=== PATIENT | male | born 1965 | race Caucasian/White ===

== ENCOUNTER 2016-08-09 17:12 | Inpatient (IN) | payer MEDICARE, OTHER ==
[~2016-08-09] VITALS: Ht 167.6 cm; Wt 88.1 kg
[~2016-08-09 17:12] MED LIST: LAMO100 PO; LEVO25TA9 PO; QUET200T PO
[2016-08-09] MEDS ORDERED: PNEUMOCOCCAL VACCINE POLYVALENT 0.5 ML VIAL [PPSV23] IM ONE (18:00)
[2016-08-09] MEDS ORDERED: INFLUENZA VIRUS VACCINE QVS 2016-17 (3YR+)/PF 60 MCG/0.5 ML SYRINGE IM ONE (18:00)
[2016-08-09 18:46] VITALS: BP_SYST 127; BP_SYST 133; BP_DIAS 74; BP_DIAS 89
[2016-08-09 18:55] LABS: GLUCOSE COMMENT 1 Doctor Notified; GLUCOSE,POINT OF CARE 83 MG/DL (70-110)
[2016-08-09] MEDS: QUEtiapine FUMARATE 300 MG TABLET PO SCH (20:21)
[2016-08-09] MEDS: ZOLPIDEM TARTRATE 10 MG TABLET PO PRN (22:28)
[2016-08-09] MEDS: LORazepam 2 MG TABLET PO PRN (22:29)
[2016-08-10 01:40] VITALS: BP 116/64
[2016-08-10] MEDS: LEVOTHYROXINE SODIUM 25 MCG TABLET PO SCH (06:05)
[2016-08-10 08:04] VITALS: BP 110/77
[2016-08-10 08:09] LABS: BASOPHILS % (AUTO) 0.4 % (0.0-2.0); EOSINOPHILS % (AUTO) 2.4 % (1.0-6.0); HEMATOCRIT 43.6 % (41-53); LYMPHOCYTES # (AUTO) 2.4 K/uL (1.0-4.8); LYMPHOCYTES % (AUTO) 30.5 % (22.0-44.0); MEAN CORPUSCULAR HEMOGLOBIN 29.1 pg (26.0-34.0); MEAN CORPUSCULAR HGB CONC 34.4 G/dL (31.0-37.0); MEAN CORPUSCULAR VOLUME 85 fL (80-100); MONOCYTES # (AUTO) 0.7 K/uL (0.1-1.0); MONOCYTES % (AUTO) 8.4 % (2.0-9.0); NEUTROPHILS # (AUTO) 4.6 K/uL (1.8-7.7); NEUTROPHILS % (AUTO) 58.3 % (40.0-70.0); PLATELET COUNT (AUTO) 206 K/uL (150-450); RED BLOOD CELL COUNT(AUTO) 5.16 MIL/uL (4.50-5.90); WHITE BLOOD COUNT (AUTO) 7.8 K/uL (4.5-11.0)
[2016-08-10 08:25] LABS: HEMOGLOBIN A1C 5.8 % (4.5-6.2)
[2016-08-10 08:31] LABS: ALANINE AMINOTRANSFERASE 55 U/L (12-78); ALBUMIN 3.8 g/dL (3.4-5.0); ANION GAP 7 mmol/L (8-16); ASPARTATE AMINOTRANSFERASE 65 U/L (15-37); BILIRUBIN,TOTAL 0.6 mg/dL (0.1-1.0); CALCIUM, TOTAL 8.8 mg/dL (8.8-10.5); CARBON DIOXIDE 28 mmol/L (22-29); CHLORIDE 103 mmol/L (98-107); CHOL/HDL RATIO 2.6 (4.2-7.3); CREATININE 1.02 mg/dL (0.60-1.30); GLOMERULAR FILTR. RATE CALC > 60 mL/min (>60); POTASSIUM 3.5 mmol/L (3.5-5.1); SODIUM SERUM 138 mmol/L (136-145); THYROID STIMULATING HORMONE 2.94 uIU/mL (0.36-3.74); TOTAL PROTEIN, SERUM 7.3 g/dL (6.4-8.2); UREA NITROGEN, BLOOD 17 mg/dL (7-18)
[2016-08-10 08:48] LABS: APPEARANCE,URINE CLEAR (CLEAR); GLUCOSE, URINE (UA) NEGATIVE (NEGATIVE); KETONES,URINE NEGATIVE (NEGATIVE); LEUKOCYTE ESTERASE ,URINE NEGATIVE (NEGATIVE); OCCULT BLOOD,URINE NEGATIVE (NEGATIVE); PH,URINE 5.5 (5.0-8.0); PROTEIN,URINE POS 1+ (NEGATIVE)
[2016-08-10] MEDS: LORazepam 2 MG TABLET PO PRN ×3 (09:20→20:50)
[2016-08-10] MEDS: QUEtiapine FUMARATE 300 MG TABLET PO SCH ×2 (09:20→16:41)
[2016-08-10] MEDS: HALOPERIDOL 5 MG TABLET PO PRN (09:20)
[2016-08-10 09:22] LABS: ADD UA MICROSCOPIC YES
[2016-08-10 09:31] LABS: RBC,URINE None Seen /HPF (0-2); WBC,URINE None Seen /HPF (0-5)
[2016-08-10 16:06] VITALS: BP 130/68
[2016-08-10] MEDS: ZOLPIDEM TARTRATE 10 MG TABLET PO PRN (20:50)
[2016-08-11 01:38] VITALS: BP 120/71
[2016-08-11] MEDS: HALOPERIDOL 5 MG TABLET PO PRN (02:11)
[2016-08-11] MEDS: LORazepam 2 MG TABLET PO PRN ×3 (02:11→20:47)
[2016-08-11] MEDS: LEVOTHYROXINE SODIUM 25 MCG TABLET PO SCH (06:36)
[2016-08-11 08:04] VITALS: BP 133/84
[2016-08-11] MEDS: QUEtiapine FUMARATE 300 MG TABLET PO SCH ×2 (09:51→16:47)
[2016-08-11 16:20] VITALS: BP 118/87
[2016-08-11] MEDS: ZOLPIDEM TARTRATE 10 MG TABLET PO PRN (20:47)
[2016-08-12 01:55] VITALS: BP 114/67
[2016-08-12] MEDS: LEVOTHYROXINE SODIUM 25 MCG TABLET PO SCH (06:04)
[2016-08-12 08:03] VITALS: BP 137/74
[2016-08-12] MEDS: HALOPERIDOL 5 MG TABLET PO PRN (08:58)
[2016-08-12] MEDS: LORazepam 2 MG TABLET PO PRN ×3 (08:58→20:34)
[2016-08-12] MEDS: QUEtiapine FUMARATE 300 MG TABLET PO SCH ×2 (08:58→16:34)
[2016-08-12] MEDS: DIVALPROEX SODIUM 500 MG DR TABLET PO SCH ×2 (09:37→20:34)
[2016-08-12 16:18] VITALS: BP 140/73
[2016-08-12] MEDS: ZOLPIDEM TARTRATE 10 MG TABLET PO PRN (20:34)
[2016-08-13 05:19] VITALS: BP 134/79
[2016-08-13] MEDS: LEVOTHYROXINE SODIUM 25 MCG TABLET PO SCH (06:12)
[2016-08-13 08:04] VITALS: BP 132/79
[2016-08-13] MEDS: LORazepam 2 MG TABLET PO PRN ×2 (09:20→20:23)
[2016-08-13] MEDS: DIVALPROEX SODIUM 500 MG DR TABLET PO SCH ×2 (09:20→20:22)
[2016-08-13] MEDS: HALOPERIDOL 5 MG TABLET PO PRN (09:20)
[2016-08-13] MEDS: QUEtiapine FUMARATE 300 MG TABLET PO SCH ×2 (09:21→16:33)
[2016-08-13 16:24] VITALS: BP 135/77
[2016-08-13] MEDS: ZOLPIDEM TARTRATE 10 MG TABLET PO PRN (20:23)
[2016-08-14 00:07] VITALS: BP 115/81
[2016-08-14] MEDS: LEVOTHYROXINE SODIUM 25 MCG TABLET PO SCH (05:58)
[2016-08-14 08:04] VITALS: BP 141/83
[2016-08-14] MEDS: DIVALPROEX SODIUM 500 MG DR TABLET PO SCH ×2 (09:14→20:19)
[2016-08-14] MEDS: LORazepam 2 MG TABLET PO PRN (09:15)
[2016-08-14] MEDS: QUEtiapine FUMARATE 300 MG TABLET PO SCH ×2 (09:15→16:34)
[2016-08-14] MEDS: HALOPERIDOL 5 MG TABLET PO PRN (09:15)
[2016-08-14 16:04] VITALS: BP 123/78
[2016-08-15] MEDS: ZOLPIDEM TARTRATE 10 MG TABLET PO PRN (00:11)
[2016-08-15 03:56] VITALS: BP 125/79
[2016-08-15] MEDS: LEVOTHYROXINE SODIUM 25 MCG TABLET PO SCH (06:03)
[2016-08-15 08:42] VITALS: BP 112/70
[2016-08-15] MEDS: DIVALPROEX SODIUM 500 MG DR TABLET PO SCH ×2 (10:40→20:44)
[2016-08-15] MEDS: QUEtiapine FUMARATE 300 MG TABLET PO SCH ×2 (10:40→16:58)
[2016-08-15] MEDS ORDERED: BENZOCAINE/MENTHOL LOZENGE MM PRN (10:45)
[2016-08-15] MEDS ORDERED: LOPERAMIDE HCL 2 MG CAPSULE PO PRN (10:45)
[2016-08-15] MEDS ORDERED: IBUPROFEN 600 MG TABLET PO PRN (10:45)
[2016-08-15] MEDS ORDERED: MAG HYDROX/AL HYDROX/SIMETH ES 30 ML SUSPENSION UDCUP PO PRN (10:45)
[2016-08-15] MEDS ORDERED: CloNIDine HCL 0.1 MG TABLET PO PRN (10:45)
[2016-08-15] MEDS ORDERED: ALBUTEROL SULFATE HFA 90 MCG/PUFF 8 GM INHALER IH PRN (10:45)
[2016-08-15] MEDS ORDERED: ACETAMINOPHEN 325 MG TABLET PO PRN (10:45)
[2016-08-15] MEDS ORDERED: PETROLATUM,WHITE 71 GM JELLY TP PRN (10:45)
[2016-08-15] MEDS ORDERED: ONDANSETRON HCL 4 MG TABLET PO PRN (10:45)
[2016-08-15] MEDS ORDERED: MAGNESIUM HYDROXIDE SUSPENSION 30 ML UDCUP PO PRN (10:45)
[2016-08-15] MEDS ORDERED: BACITRACIN 28.4 GM OINTMENT TP PRN (10:45)
[2016-08-15 16:16] VITALS: BP 139/72
[2016-08-15] MEDS: HALOPERIDOL 5 MG TABLET PO PRN (18:03)
[2016-08-15] MEDS: LORazepam 2 MG TABLET PO PRN (18:03)
[2016-08-15] MEDS: TraZODone HCL 50 MG TABLET PO SCH (20:44)
[2016-08-16 05:26] VITALS: BP 106/72
[2016-08-16] MEDS: LEVOTHYROXINE SODIUM 25 MCG TABLET PO SCH (06:30)
[2016-08-16] MEDS: LORazepam 2 MG TABLET PO PRN (09:14)
[2016-08-16] MEDS: QUEtiapine FUMARATE 300 MG TABLET PO SCH ×2 (09:14→16:45)
[2016-08-16] MEDS: DIVALPROEX SODIUM 500 MG DR TABLET PO SCH ×2 (09:14→20:52)
[2016-08-16 10:01] VITALS: BP 111/93
[2016-08-16 11:30] VITALS: BP 116/78
[2016-08-16 18:27] VITALS: BP 127/78
[2016-08-16] MEDS: TraZODone HCL 50 MG TABLET PO SCH (20:52)
[2016-08-17] MEDS: ZOLPIDEM TARTRATE 10 MG TABLET PO PRN (00:44)
[2016-08-17] MEDS: LORazepam 2 MG TABLET PO PRN ×2 (00:44→12:48)
[2016-08-17 01:00] VITALS: BP 106/73
[2016-08-17] MEDS: LEVOTHYROXINE SODIUM 25 MCG TABLET PO SCH (06:24)
[2016-08-17 08:46] VITALS: BP 112/68
[2016-08-17] MEDS: QUEtiapine FUMARATE 300 MG TABLET PO SCH ×2 (09:34→16:41)
[2016-08-17] MEDS: DIVALPROEX SODIUM 500 MG DR TABLET PO SCH ×2 (09:34→20:56)
[2016-08-17 16:15] VITALS: BP 110/67
[2016-08-17] MEDS: TraZODone HCL 50 MG TABLET PO SCH (20:56)
[2016-08-18 01:49] VITALS: BP 131/78
[2016-08-18] MEDS: LORazepam 2 MG TABLET PO PRN (01:54)
[2016-08-18] MEDS: HALOPERIDOL 5 MG TABLET PO PRN (01:54)
[2016-08-18] MEDS: LEVOTHYROXINE SODIUM 25 MCG TABLET PO SCH (06:34)
[2016-08-18 08:52] VITALS: BP 135/84
[2016-08-18] MEDS: QUEtiapine FUMARATE 300 MG TABLET PO SCH ×2 (08:52→16:56)
[2016-08-18] MEDS: DIVALPROEX SODIUM 500 MG DR TABLET PO SCH ×2 (08:52→21:02)
[2016-08-18 16:21] VITALS: BP 130/72
[2016-08-18] MEDS: TraZODone HCL 50 MG TABLET PO SCH (21:02)
[2016-08-19 00:13] VITALS: BP 136/77
[2016-08-19] MEDS: LEVOTHYROXINE SODIUM 25 MCG TABLET PO SCH (06:21)
[2016-08-19] MEDS: DIVALPROEX SODIUM 500 MG DR TABLET PO SCH (08:05)
[2016-08-19] MEDS: QUEtiapine FUMARATE 300 MG TABLET PO SCH (08:05)
[2016-08-19 08:33] VITALS: BP 128/77
[2016-08-19] MEDS ORDERED: DIVA250T4 PO (10:00)
[2016-08-19] MEDS ORDERED: TRAZ-144 PO (10:01)
[2016-08-19] MEDS ORDERED: DIVA500T35 PO (11:04)
== END 2016-08-19 14:30 | disposition home or self-care (01) | DRG 885 ==
LOC: B3A 17:39 → EDSTATUS 17:42 → B3A 20:23 → B2S 08-14 19:30
DX: F25.0 Schizoaffective disorder, bipolar type (principal); F20.0 Paranoid schizophrenia; E03.9 Hypothyroidism, unspecified; E11.9 Type 2 diabetes mellitus without complications; E66.9 Obesity, unspecified; F12.90 Cannabis use, unspecified, uncomplicated; F14.90 Cocaine use, unspecified, uncomplicated; I10 Essential (primary) hypertension; K21.9 Gastro-esophageal reflux disease without esophagitis; K59.00 Constipation, unspecified; Z68.31 Body mass index [BMI] 31.0-31.9, adult; Z91.5 Personal history of self-harm; Z71.51 Drug abuse counseling and surveillance of drug abuser; Z98.890 Other specified postprocedural states; Z56.0 Unemployment, unspecified; Z91.19 Patient's noncompliance with other medical treatment and regimen; Z79.899 Other long term (current) drug therapy; Z28.21 Immunization not carried out because of patient refusal; Z83.3 Family history of diabetes mellitus
CPT/HCPCS: 82962; 83036; 84439; 84443

== ENCOUNTER 2017-12-18 17:24 | Inpatient (IN) | payer MEDICARE ==
[~2017-12-18] VITALS: Ht 172.7 cm; Wt 85.0 kg
[~2017-12-18 17:24] MED LIST changes: +DIVA250T4 PO; +DIVA500T35 PO; -LAMO100 PO; +TRAZ-144 PO
[2017-12-18] MEDS ORDERED: HALOPERIDOL 5 MG TABLET PO PRN (18:30)
[2017-12-18 19:00] VITALS: BP 114/87
[2017-12-18] MEDS ORDERED: PNEUMOCOCCAL VACCINE POLYVALENT 0.5 ML VIAL [PPSV23] IM ONE (19:30)
[2017-12-18] MEDS: QUEtiapine FUMARATE 300 MG TABLET PO SCH (20:00)
[2017-12-18] MEDS: ZOLPIDEM TARTRATE 10 MG TABLET PO PRN (22:10)
[2017-12-19 00:03] VITALS: BP 103/60
[2017-12-19] MEDS: LEVOTHYROXINE SODIUM 25 MCG TABLET PO SCH (06:06)
[2017-12-19] MEDS: QUEtiapine FUMARATE 200 MG TABLET PO SCH (08:05)
[2017-12-19 08:19] VITALS: BP 130/72
[2017-12-19 08:37] LABS: BASOPHILS % (AUTO) 0.3 % (0.0-2.0); EOSINOPHILS % (AUTO) 3.1 % (1.0-6.0); HEMATOCRIT 42.2 % (41-53); HEMOGLOBIN 14.9 g/dL (13.5-17.5); LYMPHOCYTES # (AUTO) 2.6 K/uL (1.0-4.8); LYMPHOCYTES % (AUTO) 31.3 % (22.0-44.0); MEAN CORPUSCULAR HEMOGLOBIN 29.8 pg (26.0-34.0); MEAN CORPUSCULAR HGB CONC 35.4 G/dL (31.0-37.0); MEAN CORPUSCULAR VOLUME 84 fL (80-100); MONOCYTES # (AUTO) 0.7 K/uL (0.1-1.0); MONOCYTES % (AUTO) 8.9 % (2.0-9.0); NEUTROPHILS # (AUTO) 4.7 K/uL (1.8-7.7); NEUTROPHILS % (AUTO) 56.4 % (40.0-70.0); PLATELET COUNT (AUTO) 203 K/uL (150-450); RED BLOOD CELL COUNT(AUTO) 5.02 MIL/uL (4.50-5.90); RED CELL DISTRIBUTION WIDTH 12.6 % (11.5-14.5)
[2017-12-19 08:54] LABS: HEMOGLOBIN A1C 5.8 % (4.5-6.2)
[2017-12-19 09:19] LABS: ALANINE AMINOTRANSFERASE 31 U/L (12-78); ALBUMIN 4.1 g/dL (3.4-5.0); ALKALINE PHOSPHATASE 80 U/L (46-116); ANION GAP 7 mmol/L (8-16); ASPARTATE AMINOTRANSFERASE 34 U/L (15-37); BILIRUBIN,TOTAL 0.5 mg/dL (0.1-1.0); CALCIUM, TOTAL 8.6 mg/dL (8.8-10.5); CARBON DIOXIDE 31 mmol/L (22-29); CHLORIDE 103 mmol/L (98-107); CHOL/HDL RATIO 3.4 (4.2-7.3); CHOLESTEROL 148 mg/dL (131-200); CREATININE 1.08 mg/dL (0.60-1.30); GLOMERULAR FILTR. RATE CALC > 60 mL/min (>60); GLUCOSE,RANDOM 107 mg/dL (70-110); HDL CHOLESTEROL 44 mg/dL (40-60); LDL CHOL (CALC.) 85 mg/dL (0-130); POTASSIUM 4.1 mmol/L (3.5-5.1); SODIUM SERUM 141 mmol/L (136-145); THYROID STIMULATING HORMONE 3.87 uIU/mL (0.36-3.74); TOTAL PROTEIN, SERUM 7.3 g/dL (6.4-8.2); TRIGLYCERIDES 96 mg/dL (15-150); UREA NITROGEN, BLOOD 21 mg/dL (7-18)
[2017-12-19] MEDS ORDERED: PETROLATUM,WHITE 71 GM JELLY TP PRN (11:00)
[2017-12-19] MEDS ORDERED: MAGNESIUM HYDROXIDE SUSPENSION 30 ML UDCUP PO PRN (11:00)
[2017-12-19] MEDS ORDERED: MAG HYDROX/AL HYDROX/SIMETH ES 30 ML SUSPENSION UDCUP PO PRN (11:00)
[2017-12-19] MEDS ORDERED: ACETAMINOPHEN 325 MG TABLET PO PRN (11:00)
[2017-12-19] MEDS ORDERED: IBUPROFEN 600 MG TABLET PO PRN (11:00)
[2017-12-19] MEDS ORDERED: BENZOCAINE/MENTHOL LOZENGE MM PRN (11:00)
[2017-12-19] MEDS ORDERED: ALBUTEROL SULFATE HFA 90 MCG/PUFF 8 GM INHALER IH PRN (11:00)
[2017-12-19] MEDS ORDERED: BACITRACIN 28.4 GM OINTMENT TP PRN (11:00)
[2017-12-19] MEDS ORDERED: CloNIDine HCL 0.1 MG TABLET PO PRN (11:00)
[2017-12-19] MEDS ORDERED: LOPERAMIDE HCL 2 MG CAPSULE PO PRN (11:00)
[2017-12-19] MEDS ORDERED: ONDANSETRON HCL 4 MG TABLET PO PRN (11:00)
[2017-12-19 16:06] VITALS: BP 128/75
[2017-12-19] MEDS: QUEtiapine FUMARATE 300 MG TABLET PO SCH (20:40)
[2017-12-20 02:01] VITALS: BP 103/61
[2017-12-20] MEDS: LORazepam 2 MG TABLET PO PRN ×3 (05:35→18:36)
[2017-12-20] MEDS: LEVOTHYROXINE SODIUM 25 MCG TABLET PO SCH (06:24)
[2017-12-20] MEDS: DOCUSATE SODIUM 100 MG CAPSULE PO SCH (08:04)
[2017-12-20] MEDS: OMEPRAZOLE 20 MG CAPSULE PO SCH (08:04)
[2017-12-20] MEDS: QUEtiapine FUMARATE 200 MG TABLET PO SCH (08:04)
[2017-12-20 08:11] VITALS: BP 105/61
[2017-12-20] MEDS: QUEtiapine FUMARATE 100 MG TABLET PO PRN ×2 (12:33→18:36)
[2017-12-20 16:11] VITALS: BP 105/69
[2017-12-20] MEDS: QUEtiapine FUMARATE 300 MG TABLET PO SCH (21:42)
[2017-12-21] VITALS: BP 131/76
[2017-12-21] MEDS: LEVOTHYROXINE SODIUM 25 MCG TABLET PO SCH (06:25)
[2017-12-21] MEDS: OMEPRAZOLE 20 MG CAPSULE PO SCH (08:06)
[2017-12-21] MEDS: QUEtiapine FUMARATE 200 MG TABLET PO SCH (08:06)
[2017-12-21] MEDS: DOCUSATE SODIUM 100 MG CAPSULE PO SCH (08:06)
[2017-12-21] MEDS: LORazepam 2 MG TABLET PO PRN ×3 (08:06→16:41)
[2017-12-21 08:34] VITALS: BP 135/74
[2017-12-21 16:08] VITALS: BP 127/74
[2017-12-21] MEDS: LITHIUM CARBONATE 300 MG CAPSULE PO SCH (16:28)
[2017-12-21] MEDS: QUEtiapine FUMARATE 300 MG TABLET PO SCH (20:48)
[2017-12-21] MEDS: ZOLPIDEM TARTRATE 10 MG TABLET PO PRN (20:48)
[2017-12-22] MEDS: LORazepam 2 MG TABLET PO PRN ×2 (00:33→08:40)
[2017-12-22] MEDS: QUEtiapine FUMARATE 100 MG TABLET PO PRN (00:33)
[2017-12-22 00:36] VITALS: BP 117/73
[2017-12-22] MEDS: LEVOTHYROXINE SODIUM 25 MCG TABLET PO SCH (06:50)
[2017-12-22 08:17] VITALS: BP 139/79
[2017-12-22] MEDS: LITHIUM CARBONATE 300 MG CAPSULE PO SCH ×2 (08:26→16:23)
[2017-12-22] MEDS: OMEPRAZOLE 20 MG CAPSULE PO SCH (08:26)
[2017-12-22] MEDS: QUEtiapine FUMARATE 200 MG TABLET PO SCH (08:26)
[2017-12-22] MEDS: DOCUSATE SODIUM 100 MG CAPSULE PO SCH (08:26)
[2017-12-22 16:03] VITALS: BP 112/85
[2017-12-22] MEDS: QUEtiapine FUMARATE 300 MG TABLET PO SCH (20:04)
[2017-12-23 05:21] VITALS: BP 101/78
[2017-12-23] MEDS: LEVOTHYROXINE SODIUM 25 MCG TABLET PO SCH (06:33)
[2017-12-23] MEDS: QUEtiapine FUMARATE 200 MG TABLET PO SCH (08:06)
[2017-12-23] MEDS: LITHIUM CARBONATE 300 MG CAPSULE PO SCH ×2 (08:06→16:04)
[2017-12-23] MEDS: DOCUSATE SODIUM 100 MG CAPSULE PO SCH (08:06)
[2017-12-23] MEDS: OMEPRAZOLE 20 MG CAPSULE PO SCH (08:06)
[2017-12-23 08:29] VITALS: BP 125/76
[2017-12-23 16:30] VITALS: BP 126/71
[2017-12-23] MEDS: QUEtiapine FUMARATE 300 MG TABLET PO SCH (20:12)
[2017-12-24 03:25] VITALS: BP 122/78
[2017-12-24] MEDS: LEVOTHYROXINE SODIUM 25 MCG TABLET PO SCH (06:24)
[2017-12-24] MEDS: LITHIUM CARBONATE 300 MG CAPSULE PO SCH ×2 (08:03→16:13)
[2017-12-24] MEDS: DOCUSATE SODIUM 100 MG CAPSULE PO SCH (08:03)
[2017-12-24] MEDS: OMEPRAZOLE 20 MG CAPSULE PO SCH (08:03)
[2017-12-24] MEDS: QUEtiapine FUMARATE 200 MG TABLET PO SCH (08:03)
[2017-12-24 08:32] VITALS: BP 135/74
[2017-12-24 16:17] VITALS: BP 127/72
[2017-12-24] MEDS: QUEtiapine FUMARATE 300 MG TABLET PO SCH (20:11)
[2017-12-25 03:37] VITALS: BP 136/82
[2017-12-25] MEDS: LEVOTHYROXINE SODIUM 25 MCG TABLET PO SCH (06:37)
[2017-12-25 08:00] VITALS: BP 122/76
[2017-12-25] MEDS: QUEtiapine FUMARATE 200 MG TABLET PO SCH (08:12)
[2017-12-25] MEDS: LITHIUM CARBONATE 300 MG CAPSULE PO SCH ×2 (08:12→16:36)
[2017-12-25] MEDS: DOCUSATE SODIUM 100 MG CAPSULE PO SCH (08:12)
[2017-12-25] MEDS: OMEPRAZOLE 20 MG CAPSULE PO SCH (08:12)
[2017-12-25 16:24] VITALS: BP 139/88
[2017-12-25] MEDS: QUEtiapine FUMARATE 300 MG TABLET PO SCH (20:34)
[2017-12-25] MEDS: ZOLPIDEM TARTRATE 10 MG TABLET PO PRN (21:40)
[2017-12-26] VITALS: BP 116/82
[2017-12-26] MEDS: LEVOTHYROXINE SODIUM 25 MCG TABLET PO SCH (06:30)
[2017-12-26 08:23] VITALS: BP 134/79
[2017-12-26] MEDS: DOCUSATE SODIUM 100 MG CAPSULE PO SCH ×2 (09:00→10:07)
[2017-12-26] MEDS: LITHIUM CARBONATE 300 MG CAPSULE PO SCH ×3 (09:00→16:34)
[2017-12-26] MEDS: OMEPRAZOLE 20 MG CAPSULE PO SCH ×2 (09:00→10:06)
[2017-12-26] MEDS: QUEtiapine FUMARATE 200 MG TABLET PO SCH ×2 (09:00→10:07)
[2017-12-26] MEDS: LORazepam 2 MG TABLET PO PRN (10:07)
[2017-12-26 16:06] VITALS: BP 111/75
[2017-12-26] MEDS: QUEtiapine FUMARATE 300 MG TABLET PO SCH (20:31)
[2017-12-27 00:10] VITALS: BP 113/77
[2017-12-27] MEDS: ZOLPIDEM TARTRATE 10 MG TABLET PO PRN ×2 (00:12→22:46)
[2017-12-27] MEDS: LORazepam 2 MG TABLET PO PRN (01:02)
[2017-12-27] MEDS: LEVOTHYROXINE SODIUM 25 MCG TABLET PO SCH (06:34)
[2017-12-27 08:11] VITALS: BP 110/62
[2017-12-27] MEDS: LITHIUM CARBONATE 300 MG CAPSULE PO SCH (08:17)
[2017-12-27] MEDS: DOCUSATE SODIUM 100 MG CAPSULE PO SCH (08:17)
[2017-12-27] MEDS: OMEPRAZOLE 20 MG CAPSULE PO SCH (08:17)
[2017-12-27] MEDS: QUEtiapine FUMARATE 200 MG TABLET PO SCH (08:17)
[2017-12-27 16:10] VITALS: BP 111/83
[2017-12-27] MEDS: LITHIUM CARBONATE 600 MG CAPSULE PO SCH (16:31)
[2017-12-27] MEDS: QUEtiapine FUMARATE 300 MG TABLET PO SCH (20:30)
[2017-12-28 01:30] VITALS: BP 120/85
[2017-12-28] MEDS: LORazepam 2 MG TABLET PO PRN ×2 (02:41→08:12)
[2017-12-28] MEDS: LEVOTHYROXINE SODIUM 25 MCG TABLET PO SCH (06:05)
[2017-12-28] MEDS: LITHIUM CARBONATE 600 MG CAPSULE PO SCH ×2 (08:12→16:30)
[2017-12-28] MEDS: DOCUSATE SODIUM 100 MG CAPSULE PO SCH (08:12)
[2017-12-28] MEDS: QUEtiapine FUMARATE 200 MG TABLET PO SCH (08:12)
[2017-12-28] MEDS: OMEPRAZOLE 20 MG CAPSULE PO SCH (08:12)
[2017-12-28 08:17] VITALS: BP 114/68
[2017-12-28 16:10] VITALS: BP 113/69
[2017-12-28] MEDS: QUEtiapine FUMARATE 300 MG TABLET PO SCH (20:33)
[2017-12-28] MEDS ORDERED: ZOLPIDEM TARTRATE 10 MG TABLET PO PRN (21:15)
[2017-12-29 04:07] VITALS: BP 126/80
[2017-12-29] MEDS: LEVOTHYROXINE SODIUM 25 MCG TABLET PO SCH (06:01)
[2017-12-29] MEDS: LITHIUM CARBONATE 600 MG CAPSULE PO SCH ×2 (08:06→16:28)
[2017-12-29] MEDS: DOCUSATE SODIUM 100 MG CAPSULE PO SCH (08:07)
[2017-12-29] MEDS: OMEPRAZOLE 20 MG CAPSULE PO SCH (08:07)
[2017-12-29] MEDS: LORazepam 2 MG TABLET PO PRN ×2 (08:07→22:02)
[2017-12-29] MEDS: QUEtiapine FUMARATE 200 MG TABLET PO SCH (08:07)
[2017-12-29 08:27] VITALS: BP 122/71
[2017-12-29 16:05] VITALS: BP 119/70
[2017-12-29] MEDS: QUEtiapine FUMARATE 300 MG TABLET PO SCH (20:09)
[2017-12-30 01:07] VITALS: BP 114/75
[2017-12-30] MEDS: LEVOTHYROXINE SODIUM 25 MCG TABLET PO SCH (06:52)
[2017-12-30] MEDS: OMEPRAZOLE 20 MG CAPSULE PO SCH (08:06)
[2017-12-30] MEDS: QUEtiapine FUMARATE 200 MG TABLET PO SCH (08:06)
[2017-12-30] MEDS: DOCUSATE SODIUM 100 MG CAPSULE PO SCH (08:06)
[2017-12-30] MEDS: LITHIUM CARBONATE 600 MG CAPSULE PO SCH (08:06)
[2017-12-30] MEDS: LORazepam 2 MG TABLET PO PRN (08:06)
[2017-12-30 08:21] VITALS: BP 118/71
[2017-12-30] MEDS ORDERED: LITH600 PO (09:01)
[2017-12-30] MEDS ORDERED: QUET300T18 PO (09:01)
[2017-12-30] MEDS ORDERED: QUET200T29 PO (09:01)
== END 2017-12-30 13:15 | disposition home or self-care (01) | DRG 885 ==
LOC: B2X 18:26
DX: F25.0 Schizoaffective disorder, bipolar type (principal); F10.10 Alcohol abuse, uncomplicated; K21.9 Gastro-esophageal reflux disease without esophagitis; E66.9 Obesity, unspecified; F41.9 Anxiety disorder, unspecified; I10 Essential (primary) hypertension; F14.90 Cocaine use, unspecified, uncomplicated; E83.51 Hypocalcemia; E03.9 Hypothyroidism, unspecified; K59.00 Constipation, unspecified; G47.00 Insomnia, unspecified; F12.90 Cannabis use, unspecified, uncomplicated; Z88.8 Allergy status to other drugs, medicaments and biological substances; Z71.51 Drug abuse counseling and surveillance of drug abuser; Z56.0 Unemployment, unspecified; Z68.28 Body mass index [BMI] 28.0-28.9, adult; Z79.899 Other long term (current) drug therapy
CPT/HCPCS: 82306; 83036; 84439; 84443

== ENCOUNTER 2024-02-25 14:58 | Inpatient (IN) | payer OTHER ==
[~2024-02-25] VITALS: Ht 170.2 cm; Wt 95.0 kg
[~2024-02-25 14:58] MED LIST changes: -DIVA250T4 PO; -DIVA500T35 PO; +LITH600C5 PO; -QUET200T PO; +QUET200T30 PO; +QUET300T19 PO; -TRAZ-144 PO
[2024-02-25] MEDS ORDERED: HALOPERIDOL 5 MG TABLET PO PRN (15:30)
[2024-02-25] MEDS: LORazepam 2 MG TABLET PO PRN (17:55)
[2024-02-25 18:06] VITALS: BP 136/78; PULSE 90; RESP 17; TEMP 98; O2SAT 98
[2024-02-25 20:25] VITALS: BP 144/81; PULSE 90; RESP 18; TEMP 97.8; O2SAT 96
[2024-02-25] MEDS: ZOLPIDEM TARTRATE 10 MG TABLET PO PRN (21:57)
[2024-02-26 08:07] LABS: BASOPHILS % (AUTO) 0.4 % (0.0-2.0); EOSINOPHILS % (AUTO) 3.1 % (1.0-6.0); HEMOGLOBIN 13.9 g/dL (13.5-17.5); LYMPHOCYTES # (AUTO) 2.6 K/uL (1.0-4.8); LYMPHOCYTES % (AUTO) 23.8 % (22.0-44.0); MEAN CORPUSCULAR HEMOGLOBIN 29.3 pg (26.0-34.0); MEAN CORPUSCULAR VOLUME 86 fL (80-100); MONOCYTES % (AUTO) 9.4 % (2.0-9.0); NEUTROPHILS % (AUTO) 63.3 % (40.0-70.0); PLATELET COUNT (AUTO) 267 K/uL (150-450); RED BLOOD CELL COUNT(AUTO) 4.75 MIL/uL (4.50-5.90); RED CELL DISTRIBUTION WIDTH 13.2 % (11.5-14.5); WHITE BLOOD COUNT (AUTO) 11.1 K/uL (4.5-11.0)
[2024-02-26 08:11] VITALS: BP 112/72; PULSE 82; RESP 17; TEMP 97.7; O2SAT 94
[2024-02-26 08:22] LABS: LITHIUM 0.36 mmol/L (0.60-1.20)
[2024-02-26 08:35] LABS: ALBUMIN 3.7 g/dL (3.4-5.0); BILIRUBIN,TOTAL 0.8 mg/dL (0.1-1.0); CALCIUM, TOTAL 8.8 mg/dL (8.8-10.5); CHOL/HDL RATIO 2.5 (4.2-7.3); CREATININE 1.24 mg/dL (0.60-1.30); FREE T4 (FREE THYROXINE) 0.9 ng/dL (0.76-1.46); POTASSIUM 3.5 mmol/L (3.5-5.1); THYROID STIMULATING HORMONE 3.38 uIU/mL (0.36-3.74); TOTAL PROTEIN, SERUM 7.7 g/dL (6.4-8.2)
[2024-02-26] MEDS ORDERED: ACETAMINOPHEN 325 MG TABLET PO PRN (16:15)
[2024-02-26] MEDS ORDERED: PETROLATUM,WHITE 28 GM JELLY TP PRN (16:15)
[2024-02-26] MEDS ORDERED: GuaiFENesin/D-METHORPHAN [SUGAR-FREE] 200-20MG/10 ML SYRUP UDCUP PO PRN (16:15)
[2024-02-26] MEDS ORDERED: NICOTINE 14 MG/24 HOUR PATCH TD PRN (16:15)
[2024-02-26] MEDS ORDERED: CloNIDine HCL 0.1 MG TABLET PO PRN (16:15)
[2024-02-26] MEDS ORDERED: ONDANSETRON HCL 4 MG TABLET PO PRN (16:15)
[2024-02-26] MEDS ORDERED: MAG HYDROX/ALUMINUM HYD/SIMETH ES 30 ML SUSPENSION UDCUP PO PRN (16:15)
[2024-02-26] MEDS ORDERED: MAGNESIUM HYDROXIDE SUSPENSION 30 ML UDCUP PO PRN (16:15)
[2024-02-26] MEDS ORDERED: LOPERAMIDE HCL 2 MG CAPSULE PO PRN (16:15)
[2024-02-26] MEDS ORDERED: IBUPROFEN 400 MG TABLET PO PRN (16:15)
[2024-02-26] MEDS ORDERED: DOCUSATE SODIUM 100 MG CAPSULE PO PRN (16:15)
[2024-02-26] MEDS ORDERED: ALBUTEROL SULFATE HFA 90 MCG/PUFF 8 GM INHALER IH PRN (16:15)
[2024-02-26] MEDS: LITHIUM CARBONATE 600 MG CAPSULE PO SCH (16:25)
[2024-02-26] MEDS: MetFORMIN HCL 500 MG TABLET PO SCH (17:01)
[2024-02-26 20:17] VITALS: BP 100/69; PULSE 83; RESP 17; TEMP 97.1; O2SAT 97
[2024-02-26] MEDS: QUEtiapine FUMARATE 300 MG TABLET PO SCH (20:29)
[2024-02-27] MEDS: QUEtiapine FUMARATE 200 MG TABLET PO SCH (08:18)
[2024-02-27 08:26] VITALS: BP 134/76; PULSE 79; RESP 18; TEMP 97.7; O2SAT 98
[2024-02-27 09:00] LABS: ALCOHOL, URINE DRUG SCREEN NEGATIVE (NEGATIVE); AMPHET/METH SCREEN,URINE NEGATIVE (NEGATIVE); BARBITURATE SCREEN, URINE NEGATIVE (NEGATIVE); BENZODIAZEPINES SCREEN,URINE NEGATIVE (NEGATIVE); CANNABINOID SCREEN,URINE NEGATIVE (NEGATIVE); COCAINE SCREEN,URINE NEGATIVE (NEGATIVE); METHADONE SCREEN, URINE NEGATIVE (NEGATIVE); OPIATE SCREEN,URINE NEGATIVE (NEGATIVE); PHENCYCLIDINE SCREEN,URINE NEGATIVE (NEGATIVE)
[2024-02-27 09:07] LABS: HEMOGLOBIN A1C 6.8 % (3.8-5.6)
[2024-02-27 09:21] LABS: CHOL/HDL RATIO 2.8 (4.2-7.3); THYROID STIMULATING HORMONE 4.53 uIU/mL (0.36-3.74)
[2024-02-27 20:40] VITALS: BP 140/82; PULSE 95; RESP 16; TEMP 97.8; O2SAT 96
[2024-02-28 08:11] VITALS: BP 113/62; PULSE 82; RESP 16; TEMP 97.5; O2SAT 98
[2024-02-28 20:25] VITALS: BP 139/79; PULSE 92; RESP 16; TEMP 97.4; O2SAT 95
[2024-02-29 08:29] VITALS: BP 147/74; PULSE 86; RESP 16; TEMP 97.3; O2SAT 99
[2024-02-29] MEDS: LITHIUM CARBONATE 300 MG CAPSULE PO SCH (16:49)
[2024-02-29 20:42] VITALS: BP 129/73; PULSE 68; RESP 18; TEMP 97.1; O2SAT 96
[2024-03-01] VITALS (9 sets, daily range): BP systolic 109–142; BP diastolic 60–89; PULSE 94–104; RESP 18; TEMP 96–97.5; O2SAT 95–99
[2024-03-01] MEDS: QUEtiapine FUMARATE 300 MG TABLET PO SCH (08:26)
[2024-03-02 08:14] LABS: BASOPHILS % (AUTO) 0.5 % (0.0-2.0); EOSINOPHILS % (AUTO) 3.8 % (1.0-6.0); HEMATOCRIT 41.5 % (41-53); HEMOGLOBIN 14.3 g/dL (13.5-17.5); LYMPHOCYTES % (AUTO) 20.8 % (22.0-44.0); MEAN CORPUSCULAR HEMOGLOBIN 29.7 pg (26.0-34.0); MEAN CORPUSCULAR HGB CONC 34.4 G/dL (31.0-37.0); MEAN CORPUSCULAR VOLUME 86 fL (80-100); MONOCYTES % (AUTO) 9.9 % (2.0-9.0); NEUTROPHILS # (AUTO) 6.4 K/uL (1.8-7.7); PLATELET COUNT (AUTO) 260 K/uL (150-450); RED CELL DISTRIBUTION WIDTH 13.6 % (11.5-14.5); WHITE BLOOD COUNT (AUTO) 9.8 K/uL (4.5-11.0)
[2024-03-02 08:20] VITALS: BP 121/75; PULSE 87; RESP 18; TEMP 96; O2SAT 96
[2024-03-02 13:00] VITALS: BP 131/77; PULSE 91; RESP 18; TEMP 97.7; O2SAT 99
== END 2024-03-02 22:14 | disposition short-term general hospital (02) | DRG 885 ==
LOC: B3A 15:20
PROVIDERS: ADMIT Psychiatry & Neurology Child & Adolescent Psychiatry; ATTEND Psychiatry & Neurology Child & Adolescent Psychiatry
PROC: GZ52ZZZ Individual Psychotherapy, Cognitive (ICD-10-PCS; principal; 2024-02-26)
PROC: GZ56ZZZ Individual Psychotherapy, Supportive (ICD-10-PCS; 2024-02-26)
DX: F25.0 Schizoaffective disorder, bipolar type (principal); E11.65 Type 2 diabetes mellitus with hyperglycemia; I10 Essential (primary) hypertension; D72.829 Elevated white blood cell count, unspecified; K21.9 Gastro-esophageal reflux disease without esophagitis; E03.9 Hypothyroidism, unspecified; Z88.8 Allergy status to other drugs, medicaments and biological substances; Z79.899 Other long term (current) drug therapy
CPT/HCPCS: 80053; 80061; 80178; 80307; 82140; 83036; 84439; 84443; 85025

== ENCOUNTER 2024-03-02 13:39 | Inpatient (IN) | payer OTHER, MEDICARE ==
[~2024-03-02] VITALS: Ht 170.2 cm; Wt 77.3 kg
[2024-03-02] MEDS: MIDAZOLAM HCL 5 MG/ML VIAL IM ONE (14:38)
[2024-03-02 15:33] LABS: BASOPHILS % (AUTO) 0.3 % (0.0-2.0); EOSINOPHILS % (AUTO) 3.7 % (1.0-6.0); HEMOGLOBIN 13.7 g/dL (13.5-17.5); LYMPHOCYTES # (AUTO) 1.3 K/uL (1.0-4.8); LYMPHOCYTES % (AUTO) 16.4 % (22.0-44.0); MEAN CORPUSCULAR HEMOGLOBIN 29.5 pg (26.0-34.0); MEAN CORPUSCULAR HGB CONC 34.2 G/dL (31.0-37.0); MEAN CORPUSCULAR VOLUME 86 fL (80-100); MONOCYTES # (AUTO) 0.8 K/uL (0.1-1.0); MONOCYTES % (AUTO) 10.4 % (2.0-9.0); NEUTROPHILS # (AUTO) 5.4 K/uL (1.8-7.7); NEUTROPHILS % (AUTO) 69.2 % (40.0-70.0); PLATELET COUNT (AUTO) 221 K/uL (150-450); RED BLOOD CELL COUNT(AUTO) 4.64 MIL/uL (4.50-5.90); RED CELL DISTRIBUTION WIDTH 13.6 % (11.5-14.5); WHITE BLOOD COUNT (AUTO) 7.7 K/uL (4.5-11.0)
[2024-03-02 15:43] LABS: LITHIUM 1.42 mmol/L (0.60-1.20); MAGNESIUM 2.2 mg/dL (1.80-2.40)
[2024-03-02 15:44] LABS: ANION GAP 9 mmol/L (8-16); CALCIUM, TOTAL 8.9 mg/dL (8.8-10.5); CARBON DIOXIDE 26 mmol/L (22-29); CHLORIDE 102 mmol/L (98-107); CREATININE 1.51 mg/dL (0.60-1.30); GLOMERULAR FILTR. RATE CALC 47 mL/min (>60); GLUCOSE,RANDOM 136 mg/dL (70-110); POTASSIUM 3.7 mmol/L (3.5-5.1); SODIUM SERUM 137 mmol/L (136-145); UREA NITROGEN, BLOOD 20 mg/dL (7-18)
[2024-03-02 15:50] LABS: ALANINE AMINOTRANSFERASE 65 U/L (12-78); ALBUMIN 3.6 g/dL (3.4-5.0); ALKALINE PHOSPHATASE 90 U/L (46-116); ASPARTATE AMINOTRANSFERASE 50 U/L (15-37); BILIRUBIN,TOTAL 0.7 mg/dL (0.1-1.0); TOTAL PROTEIN, SERUM 7.1 g/dL (6.4-8.2)
[2024-03-02 16:05] LABS: LACTIC ACID 1.1 mmol/L (0.4-2.0)
[2024-03-02 16:07] LABS: APPEARANCE,URINE CLEAR (CLEAR); BILIRUBIN,URINE NEGATIVE (NEGATIVE); COLOR,URINE LIGHT YELLOW (YELLOW); GLUCOSE, URINE (UA) NEGATIVE (NEGATIVE); KETONES,URINE NEGATIVE (NEGATIVE); LEUKOCYTE ESTERASE ,URINE NEGATIVE (NEGATIVE); NITRATE,URINE NEGATIVE (NEGATIVE); OCCULT BLOOD,URINE NEGATIVE (NEGATIVE); PROTEIN,URINE NEGATIVE (NEGATIVE); SPECIFIC GRAVITIY, URINE 1.008 (1.003-1.030); UROBILINOGEN,URINE <=1.0 mg/dL (<=1.0)
[2024-03-02 16:15] LABS: ALCOHOL, URINE DRUG SCREEN NEGATIVE (NEGATIVE); AMPHET/METH SCREEN,URINE NEGATIVE (NEGATIVE); BARBITURATE SCREEN, URINE NEGATIVE (NEGATIVE); BENZODIAZEPINES SCREEN,URINE POSITIVE (NEGATIVE); CANNABINOID SCREEN,URINE NEGATIVE (NEGATIVE); COCAINE SCREEN,URINE NEGATIVE (NEGATIVE); METHADONE SCREEN, URINE NEGATIVE (NEGATIVE); OPIATE SCREEN,URINE NEGATIVE (NEGATIVE); PHENCYCLIDINE SCREEN,URINE NEGATIVE (NEGATIVE)
[2024-03-02] MEDS: SODIUM CHLORIDE 0.9% 1,000 ML IV ONE ×3 (16:38→16:57)
[2024-03-02] MEDS ORDERED: MAGNESIUM HYDROXIDE SUSPENSION 30 ML UDCUP PO PRN (17:00)
[2024-03-02] MEDS ORDERED: ACETAMINOPHEN 325 MG TABLET PO PRN (17:00)
[2024-03-02] MEDS: LORazepam 2 MG/ML VIAL IVP PRN (19:46)
[2024-03-02 20:30] VITALS: BP 123/80; PULSE 78; RESP 20; TEMP 98.1; O2SAT 96
[2024-03-02] MEDS: HEPARIN SODIUM,PORCINE 5,000 UNITS/ML VIAL SQ SCH (23:42)
[2024-03-03 01:31] VITALS: BP 120/72; PULSE 77; RESP 20; TEMP 98.1; O2SAT 99
[2024-03-03 07:15] LABS: LITHIUM 1.11 mmol/L (0.60-1.20)
[2024-03-03 07:27] LABS: CALCIUM, TOTAL 9.2 mg/dL (8.8-10.5); CREATININE 1.51 mg/dL (0.60-1.30); POTASSIUM 3.9 mmol/L (3.5-5.1)
[2024-03-03] MEDS: SODIUM CHLORIDE 0.9% 1,000 ML IV ONE (17:03)
[2024-03-03 20:10] VITALS: BP 140/89; PULSE 91; RESP 18; TEMP 97.6; O2SAT 98
[2024-03-03] MEDS: QUEtiapine FUMARATE 100 MG TABLET PO SCH (20:13)
[2024-03-04 12:54] LABS: COVID AG,FIA SOURCE NASAL SWAB
[2024-03-04 13:17] LABS: SARS-COV2 (COVID) ANTIGEN,FIA Negative (Negative)
[2024-03-04] MEDS ORDERED: QUET100T PO (15:57)
[2024-03-04] MEDS ORDERED: HEPA500018 SQ (15:57)
[2024-03-04] MEDS ORDERED: ACET-2247 PO (15:58)
[2024-03-04] MEDS ORDERED: MAGN-169 PO (15:58)
== END 2024-03-04 16:55 | DRG 948 ==
LOC: EMS 13:40 → EDH 16:51 → 4E 20:17
PROVIDERS: ADMIT Internal Medicine; ATTEND Internal Medicine
PROC: GZ56ZZZ Individual Psychotherapy, Supportive (ICD-10-PCS; principal; 2024-03-03)
DX: R79.89 Other specified abnormal findings of blood chemistry (principal); E03.9 Hypothyroidism, unspecified; E11.22 Type 2 diabetes mellitus with diabetic chronic kidney disease; K21.9 Gastro-esophageal reflux disease without esophagitis; N18.2 Chronic kidney disease, stage 2 (mild); Z20.822 Contact with and (suspected) exposure to COVID-19; F25.0 Schizoaffective disorder, bipolar type; Z79.899 Other long term (current) drug therapy; Z88.8 Allergy status to other drugs, medicaments and biological substances
CPT/HCPCS: 51702; 80048; 80053; 80178; 80307; 81003; 82140; 83605; 83735; 84443; 85025; 93005; 99285; G0378; J1644; J2060; J2250; J7030

== ENCOUNTER 2024-03-04 09:05 | Inpatient (IN) | payer OTHER, MEDICARE ==
[~2024-03-04] VITALS: Ht 170.2 cm; Wt 90.8 kg
[2024-03-04] MEDS ORDERED: HALOPERIDOL 5 MG TABLET PO PRN (11:30)
[2024-03-04] MEDS ORDERED: QUET100T PO (15:57)
[2024-03-04] MEDS ORDERED: HEPA500018 SQ (15:57)
[2024-03-04] MEDS ORDERED: MAGN-169 PO (15:58)
[2024-03-04] MEDS ORDERED: ACET-2247 PO (15:58)
[2024-03-04 20:05] VITALS: BP 140/81; PULSE 95; RESP 20; TEMP 97.5; O2SAT 97
[2024-03-04] MEDS: QUEtiapine FUMARATE 100 MG TABLET PO SCH (20:28)
[2024-03-04] MEDS: ZOLPIDEM TARTRATE 10 MG TABLET PO PRN (20:28)
[2024-03-04] MEDS: LORazepam 2 MG TABLET PO PRN (20:28)
[2024-03-05 07:55] VITALS: BP 139/84; PULSE 75; RESP 18; TEMP 97.5; O2SAT 96
[2024-03-05 08:08] VITALS: BP 139/84; PULSE 75; RESP 18; TEMP 97.5; O2SAT 96
[2024-03-05] MEDS: QUEtiapine FUMARATE 25 MG TABLET PO SCH (08:17)
[2024-03-05] MEDS ORDERED: MAG HYDROX/ALUMINUM HYD/SIMETH ES 30 ML SUSPENSION UDCUP PO PRN (13:00)
[2024-03-05] MEDS ORDERED: NICOTINE 14 MG/24 HOUR PATCH TD PRN (13:00)
[2024-03-05] MEDS ORDERED: LOPERAMIDE HCL 2 MG CAPSULE PO PRN (13:00)
[2024-03-05] MEDS ORDERED: MAGNESIUM HYDROXIDE SUSPENSION 30 ML UDCUP PO PRN (13:00)
[2024-03-05] MEDS ORDERED: ALBUTEROL SULFATE HFA 90 MCG/PUFF 8 GM INHALER IH PRN (13:00)
[2024-03-05] MEDS ORDERED: CloNIDine HCL 0.1 MG TABLET PO PRN (13:00)
[2024-03-05] MEDS ORDERED: PETROLATUM,WHITE 28 GM JELLY TP PRN (13:00)
[2024-03-05] MEDS ORDERED: IBUPROFEN 400 MG TABLET PO PRN (13:00)
[2024-03-05] MEDS ORDERED: DOCUSATE SODIUM 100 MG CAPSULE PO PRN (13:00)
[2024-03-05] MEDS ORDERED: ONDANSETRON 4 MG TABLET PO PRN (13:00)
[2024-03-05] MEDS ORDERED: ACETAMINOPHEN 325 MG TABLET PO PRN (13:00)
[2024-03-05] MEDS ORDERED: GuaiFENesin/D-METHORPHAN [SUGAR-FREE] 200-20MG/10 ML SYRUP UDCUP PO PRN (13:00)
[2024-03-05 20:05] VITALS: BP 127/83; PULSE 57; RESP 17; TEMP 96.8; O2SAT 99
[2024-03-06 08:16] VITALS: BP 151/87; PULSE 94; RESP 19; TEMP 97; O2SAT 94
[2024-03-06] MEDS ORDERED: ChlorproMAZINE HCL 50 MG/2 ML AMP ONE (18:59)
[2024-03-06] MEDS ORDERED: DiphenhydrAMINE HCL 50 MG/ML VIAL ONE (18:59)
[2024-03-06] MEDS: LORazepam 2 MG/ML VIAL IM ONE (19:13)
[2024-03-06] MEDS: ChlorproMAZINE HCL 50 MG/2 ML AMP IM ONE (19:13)
[2024-03-06] MEDS: DiphenhydrAMINE HCL 50 MG/ML VIAL IM ONE (19:13)
[2024-03-06 20:09] VITALS: BP 148/98; PULSE 101; RESP 18; TEMP 96.6; O2SAT 96
[2024-03-06] MEDS: QUEtiapine FUMARATE 200 MG TABLET PO SCH (20:46)
[2024-03-07 08:03] VITALS: BP 121/73; PULSE 91; RESP 16; TEMP 98.5; O2SAT 98
[2024-03-07] MEDS: QUEtiapine FUMARATE 200 MG TABLET PO SCH (08:11)
[2024-03-07 09:12] LABS: HEMOGLOBIN A1C 6.5 % (3.8-5.6)
[2024-03-07 09:18] LABS: CHOL/HDL RATIO 3.4 (4.2-7.3); THYROID STIMULATING HORMONE 3.45 uIU/mL (0.36-3.74)
[2024-03-07 20:33] VITALS: BP 130/88; PULSE 98; RESP 17; TEMP 97.1; O2SAT 96
[2024-03-08 09:04] VITALS: BP 140/84; PULSE 90; RESP 18; TEMP 98; O2SAT 98
[2024-03-08 20:24] VITALS: BP 145/82; PULSE 97; RESP 17; TEMP 98; O2SAT 98
[2024-03-09 08:02] VITALS: BP 111/76; PULSE 90; RESP 18; TEMP 97.3; O2SAT 97
[2024-03-09 09:07] LABS: APPEARANCE,URINE CLEAR (CLEAR); BILIRUBIN,URINE NEGATIVE (NEGATIVE); COLOR,URINE LIGHT YELLOW (YELLOW); GLUCOSE, URINE (UA) TRACE mg/dL (NEGATIVE); KETONES,URINE NEGATIVE (NEGATIVE); LEUKOCYTE ESTERASE ,URINE NEGATIVE (NEGATIVE); NITRATE,URINE NEGATIVE (NEGATIVE); OCCULT BLOOD,URINE NEGATIVE (NEGATIVE); PH,URINE 5.5 (5.0-8.0); PH,URINE DRUG SCREEN 5.5 (5.0-8.0); PROTEIN,URINE NEGATIVE (NEGATIVE); UROBILINOGEN,URINE <=1.0 mg/dL (<=1.0)
[2024-03-09 09:18] LABS: BACTERIA,URINE None Seen /HPF (None Seen); RBC,URINE None Seen /HPF (0-2); WBC,URINE None Seen /HPF (0-5)
[2024-03-09 09:20] LABS: ALCOHOL, URINE DRUG SCREEN NEGATIVE (NEGATIVE); AMPHET/METH SCREEN,URINE NEGATIVE (NEGATIVE); BENZODIAZEPINES SCREEN,URINE NEGATIVE (NEGATIVE); CANNABINOID SCREEN,URINE NEGATIVE (NEGATIVE); COCAINE SCREEN,URINE NEGATIVE (NEGATIVE); METHADONE SCREEN, URINE NEGATIVE (NEGATIVE); OPIATE SCREEN,URINE NEGATIVE (NEGATIVE); PHENCYCLIDINE SCREEN,URINE NEGATIVE (NEGATIVE)
[2024-03-09 09:28] LABS: BARBITURATE SCREEN, URINE NEGATIVE (NEGATIVE)
[2024-03-09 20:16] VITALS: BP 126/72; PULSE 86; RESP 17; TEMP 98; O2SAT 97
[2024-03-10 08:22] VITALS: BP 115/72; PULSE 87; RESP 17; TEMP 97.9; O2SAT 97
[2024-03-10 19:26] LABS: GLUCOMETER DEV NAME(LOC) BV3N.2; GLUCOSE,POINT OF CARE 143 MG/DL (70-110)
[2024-03-10 20:00] VITALS: BP 122/79; PULSE 86; RESP 18; TEMP 97; O2SAT 98
[2024-03-11 06:21] LABS: GLUCOMETER DEV NAME(LOC) BV3N.2; GLUCOSE,POINT OF CARE 122 MG/DL (70-110)
[2024-03-11 08:13] VITALS: BP 133/60; PULSE 87; RESP 18; TEMP 96.8; O2SAT 95
[2024-03-11 20:10] VITALS: BP 136/79; PULSE 83; RESP 19; TEMP 97.3; O2SAT 95
[2024-03-11] MEDS: QUEtiapine FUMARATE 300 MG TABLET PO SCH (20:51)
[2024-03-12 05:51] LABS: GLUCOMETER DEV NAME(LOC) BV3N.2; GLUCOSE,POINT OF CARE 156 MG/DL (70-110)
[2024-03-12 08:01] VITALS: BP 112/60; PULSE 81; RESP 17; TEMP 97.7; O2SAT 97
[2024-03-12 17:30] LABS: GLUCOMETER DEV NAME(LOC) BV3N.2; GLUCOSE,POINT OF CARE 117 MG/DL (70-110)
[2024-03-12 20:56] VITALS: BP 117/72; PULSE 76; RESP 17; TEMP 97.5; O2SAT 98
[2024-03-13 06:05] LABS: GLUCOMETER DEV NAME(LOC) BV3N.2; GLUCOSE,POINT OF CARE 169 MG/DL (70-110)
[2024-03-13 08:14] VITALS: BP 137/78; PULSE 93; RESP 18; TEMP 97.9; O2SAT 95
[2024-03-13 16:30] LABS: GLUCOMETER DEV NAME(LOC) BV3N.2; GLUCOSE,POINT OF CARE 122 MG/DL (70-110)
[2024-03-13 20:18] VITALS: BP 102/58; PULSE 78; RESP 20; TEMP 98.3; O2SAT 94
[2024-03-14 06:01] LABS: GLUCOMETER DEV NAME(LOC) BV3N.2; GLUCOSE,POINT OF CARE 175 MG/DL (70-110)
[2024-03-14 08:13] VITALS: BP 113/79; PULSE 88; RESP 17; TEMP 98.1; O2SAT 97
[2024-03-14 16:21] LABS: GLUCOMETER DEV NAME(LOC) BV3N.2; GLUCOSE,POINT OF CARE 142 MG/DL (70-110)
[2024-03-14 20:37] VITALS: BP 135/77; PULSE 80; RESP 17; TEMP 97.7; O2SAT 96
[2024-03-15 06:21] LABS: GLUCOMETER DEV NAME(LOC) BV3N.2; GLUCOSE,POINT OF CARE 128 MG/DL (70-110)
[2024-03-15 08:01] VITALS: BP 138/71; PULSE 82; RESP 18; TEMP 97.1; O2SAT 97
[2024-03-15 20:26] VITALS: BP 113/68; PULSE 79; RESP 18; TEMP 97.7; O2SAT 95
[2024-03-16 06:36] LABS: GLUCOMETER DEV NAME(LOC) BV3N.2; GLUCOSE,POINT OF CARE 218 MG/DL (70-110)
[2024-03-16 08:22] VITALS: BP 125/79; PULSE 81; RESP 17; TEMP 98; O2SAT 95
[2024-03-16] MEDS: LORazepam 2 MG TABLET PO PRN (10:57)
[2024-03-16 20:12] VITALS: BP 118/70; PULSE 78; RESP 17; TEMP 98; O2SAT 96
[2024-03-17 06:51] LABS: GLUCOMETER DEV NAME(LOC) BV3N.2; GLUCOSE,POINT OF CARE 110 MG/DL (70-110)
[2024-03-17 08:17] VITALS: BP 125/61; PULSE 87; RESP 17; TEMP 97.5; O2SAT 95
[2024-03-17 20:13] VITALS: BP 106/67; PULSE 84; RESP 17; TEMP 97.5; O2SAT 95
[2024-03-18 06:36] LABS: GLUCOMETER DEV NAME(LOC) BV3N.2; GLUCOSE,POINT OF CARE 111 MG/DL (70-110)
[2024-03-18 08:11] VITALS: BP 126/71; PULSE 84; RESP 18; TEMP 97.5; O2SAT 94
[2024-03-18 17:00] LABS: GLUCOMETER DEV NAME(LOC) BV3N.2; GLUCOSE,POINT OF CARE 129 MG/DL (70-110)
[2024-03-18] MEDS: ZOLPIDEM TARTRATE 10 MG TABLET PO PRN (20:05)
[2024-03-18 20:39] VITALS: BP 107/73; PULSE 88; RESP 16; TEMP 97.5; O2SAT 94
[2024-03-19 07:05] LABS: GLUCOMETER DEV NAME(LOC) BV3N.2; GLUCOSE,POINT OF CARE 120 MG/DL (70-110)
[2024-03-19 08:19] VITALS: BP 130/80; PULSE 92; RESP 17; TEMP 97.5; O2SAT 95
[2024-03-19 17:15] LABS: GLUCOMETER DEV NAME(LOC) BV3N.2; GLUCOSE,POINT OF CARE 110 MG/DL (70-110)
[2024-03-19 20:10] VITALS: BP 125/81; PULSE 83; RESP 18; TEMP 97.7; O2SAT 100
[2024-03-20 06:16] LABS: GLUCOMETER DEV NAME(LOC) BV3N.2; GLUCOSE,POINT OF CARE 125 MG/DL (70-110)
[2024-03-20 08:13] VITALS: BP 141/87; PULSE 80; RESP 18; TEMP 97.5; O2SAT 97
[2024-03-20 16:32] LABS: GLUCOMETER DEV NAME(LOC) BV3N.2; GLUCOSE,POINT OF CARE 159 MG/DL (70-110)
[2024-03-20 22:42] VITALS: BP 136/81; PULSE 89; RESP 18; TEMP 98
[2024-03-21 07:01] LABS: GLUCOMETER DEV NAME(LOC) BV3N.2; GLUCOSE,POINT OF CARE 121 MG/DL (70-110)
[2024-03-21 08:20] VITALS: BP 118/64; PULSE 82; RESP 18; TEMP 98.2; O2SAT 99
[2024-03-21 19:31] LABS: GLUCOMETER DEV NAME(LOC) BV3N.2; GLUCOSE,POINT OF CARE 163 MG/DL (70-110)
[2024-03-21 20:21] VITALS: BP 118/70; PULSE 65; RESP 18; TEMP 97.4; O2SAT 95
[2024-03-22 05:56] LABS: GLUCOMETER DEV NAME(LOC) BV3N.2; GLUCOSE,POINT OF CARE 114 MG/DL (70-110)
[2024-03-22 08:45] VITALS: BP 119/85; PULSE 82; RESP 17; TEMP 97.5; O2SAT 97
[2024-03-22] MEDS: FluPHENAZine HCL 10 MG TABLET PO SCH (16:14)
[2024-03-22 22:21] VITALS: RESP 18
[2024-03-23 06:20] LABS: GLUCOMETER DEV NAME(LOC) BV3N.2; GLUCOSE,POINT OF CARE 161 MG/DL (70-110)
[2024-03-23 08:24] VITALS: BP 135/95; PULSE 98; RESP 17; TEMP 97.3; O2SAT 96
[2024-03-23 16:56] LABS: GLUCOMETER DEV NAME(LOC) BV3N.2; GLUCOSE,POINT OF CARE 112 MG/DL (70-110)
[2024-03-23 20:08] VITALS: BP 121/68; PULSE 78; RESP 18; TEMP 96.8; O2SAT 100
[2024-03-24 06:41] LABS: GLUCOMETER DEV NAME(LOC) BV3N.2; GLUCOSE,POINT OF CARE 93 MG/DL (70-110)
[2024-03-24 08:06] VITALS: BP 119/74; PULSE 85; RESP 16; TEMP 97.5; O2SAT 98
[2024-03-24 20:12] VITALS: BP 117/97; PULSE 88; RESP 18; TEMP 97.5; O2SAT 97
[2024-03-25 06:05] LABS: GLUCOMETER DEV NAME(LOC) BV3N.2; GLUCOSE,POINT OF CARE 103 MG/DL (70-110)
[2024-03-25 09:16] VITALS: BP 138/94; PULSE 90; RESP 17; TEMP 97.3; O2SAT 96
[2024-03-25 20:10] VITALS: BP 132/82; PULSE 82; RESP 17; TEMP 97.5; O2SAT 96
[2024-03-26 05:50] LABS: GLUCOMETER DEV NAME(LOC) BV3N.2; GLUCOSE,POINT OF CARE 87 MG/DL (70-110)
[2024-03-26 08:27] VITALS: BP 109/80; PULSE 67; RESP 16; TEMP 97.5; O2SAT 98
[2024-03-26 17:46] LABS: GLUCOMETER DEV NAME(LOC) BV3N.2; GLUCOSE,POINT OF CARE 124 MG/DL (70-110)
[2024-03-26 20:11] VITALS: BP 131/80; PULSE 79; RESP 18; TEMP 97.7; O2SAT 98
[2024-03-27 06:26] LABS: GLUCOMETER DEV NAME(LOC) BV3N.2; GLUCOSE,POINT OF CARE 145 MG/DL (70-110)
[2024-03-27 08:08] VITALS: BP 119/77; PULSE 87; RESP 17; TEMP 97.5; O2SAT 100
[2024-03-27 08:18] VITALS: BP 119/77; PULSE 87; RESP 17; TEMP 97.5; O2SAT 100
[2024-03-27] MEDS ORDERED: FLUP10TA28 PO ×2 (11:41→12:26)
[2024-03-27] MEDS ORDERED: QUET300T2 PO (11:42)
[2024-03-27] MEDS ORDERED: QUET200T PO (11:42)
[2024-03-27] MEDS ORDERED: QUET200T30 PO (12:26)
[2024-03-27] MEDS ORDERED: QUET300T19 PO (12:26)
== END 2024-03-27 13:19 | disposition home or self-care (01) | DRG 885 ==
LOC: B3A 13:46
PROVIDERS: ADMIT Psychiatry & Neurology Child & Adolescent Psychiatry; ATTEND Psychiatry & Neurology Child & Adolescent Psychiatry
PROC: GZHZZZZ Group Psychotherapy (ICD-10-PCS; principal; 2024-03-06)
PROC: GZ58ZZZ Individual Psychotherapy, Cognitive-Behavioral (ICD-10-PCS; 2024-03-06)
PROC: GZ56ZZZ Individual Psychotherapy, Supportive (ICD-10-PCS; 2024-03-06)
DX: F20.0 Paranoid schizophrenia (principal); I10 Essential (primary) hypertension; K21.9 Gastro-esophageal reflux disease without esophagitis; E78.5 Hyperlipidemia, unspecified; M13.88 Other specified arthritis, other site; E03.9 Hypothyroidism, unspecified; F20.9 Schizophrenia, unspecified; E11.9 Type 2 diabetes mellitus without complications; Z88.8 Allergy status to other drugs, medicaments and biological substances
CPT/HCPCS: 80061; 80307; 81001; 81003; 82962; 83036; 84443; 87081; J1200; J2060; J3230